=== PATIENT | female | born 1935 | race Caucasian/White ===

== ENCOUNTER 2016-10-17 14:57 | Emergency (ER) | payer MEDICARE, OTHER ==
[2016-10-17 16:17] LABS: ABSOLUTE NEUTROPHIL COUNT 6.2 K/mm3 (1.8-7.7); BASO # 0.1 K/mm3 (0.0-0.2); BASO % 0.8 % (0.2-1.0); EOS # 0.1 (0.0-0.5); EOS % 1.3 % (0.9-2.9); HEMOGLOBIN 11.9 gm/l (12.0-16.0); IMM NEUT% 0.3 % (0-1); LYMPH % 21.8 % (15-45); MEAN CELL VOLUME 100.9 fl (81.0-99.0); MEAN CORPUSCULAR HEMOGLOBIN 34.3 pg (27.0-31.0); MEAN PLATELET VOLUME 9.8 fl (7.4-10.4); MONO # 0.7 (0.0-0.8); MONO % 7.7 % (4-12); NEUT % 68.1 % (43-75); PLATELET COUNT 252 K/mm3 (130-400)
[2016-10-17] MEDS ORDERED: SODIUM CHLORIDE 0.9% 1,000 ML ONE (16:18)
[2016-10-17] MEDS ORDERED: PROMETHAZINE HCL 25 MG/ML VIAL ONE (16:18)
[2016-10-17 16:26] LABS: INR 0.99; PARTIAL THROMBOPLASTIN TIME 21.9 SECONDS (24.5-33.0); PROTHROMBIN TIME 10.4 SECONDS (9.3-11.4)
[2016-10-17 16:33] LABS: ALB/GLOB RATIO 1.2 (>1.0); ALBUMIN 3.4 gm/dL (3.5-5.7); CALCIUM 8.8 mg/dL (8.6-10.3)
== END 2016-10-17 17:24 | disposition home or self-care (01) ==
LOC: ED 14:57
DX: E86.0 Dehydration (principal); R19.7 Diarrhea, unspecified; R11.0 Nausea; R19.5 Other fecal abnormalities; I10 Essential (primary) hypertension
CPT/HCPCS: 85025; 80053; 85730; 85610; 99283 ×2; 96361; 93005; 96374; J2550; J7030

== ENCOUNTER 2016-10-26 11:53 | Emergency (ER) | payer MEDICARE, OTHER ==
[2016-10-26 12:43] LABS: ABSOLUTE NEUTROPHIL COUNT 3.9 K/mm3 (1.8-7.7); BASO # 0.1 K/mm3 (0.0-0.2); BASO % 1.1 % (0.2-1.0); EOS # 0.2 (0.0-0.5); EOS % 3.3 % (0.9-2.9); HEMATOCRIT 37.9 % (37.0-47.0); HEMOGLOBIN 12.5 gm/l (12.0-16.0); IMM NEUT% 0.4 % (0-1); LYMPH % 28.2 % (15-45); MEAN CELL VOLUME 104.7 fl (81.0-99.0); MEAN CORPUSCULAR HEMOGLOBIN 34.5 pg (27.0-31.0); MEAN PLATELET VOLUME 9.7 fl (7.4-10.4); MONO # 0.8 (0.0-0.8); MONO % 11.5 % (4-12); NEUT % 55.5 % (43-75); PLATELET COUNT 253 K/mm3 (130-400); RED CELL DISTRIBUTION WIDTH 14.6 % (11.5-14.5)
[2016-10-26 12:48] LABS: INR 0.96; PROTHROMBIN TIME 10.1 SECONDS (9.3-11.4)
[2016-10-26 12:56] LABS: ALB/GLOB RATIO 1.4 (>1.0); ALBUMIN 3.7 gm/dL (3.5-5.7); CALCIUM 9.1 mg/dL (8.6-10.3)
[2016-10-26] MEDS ORDERED: PANTOPRAZOLE 40 MG TABLET DR PO ONE (14:43)
== END 2016-10-26 16:22 | disposition home or self-care (01) ==
LOC: ED 11:53
DX: K92.1 Melena (principal); I10 Essential (primary) hypertension; I48.91 Unspecified atrial fibrillation
CPT/HCPCS: 85025; 80053; 85610; 86901; 86850 ×3; 99283 ×2; A9270

== ENCOUNTER 2016-10-27 06:55 | Day surgery (SDC) | payer MEDICARE, OTHER ==
[~2016-10-27 06:55] MED LIST: FENTANYL 250 MCG/5 ML AMP IV PRN; LACTATED RINGERS 1,000 ML IV SCH; LIDOCAINE Viscous 2% 15 ML UDCUP PO PRN; MIDAZOLAM HCL 5 MG/5 ML VIAL IV PRN
[2016-10-27] MEDS ORDERED: LACTATED RINGERS 1,000 ML ONE (07:02)
[2016-10-27] MEDS ORDERED: IV START KIT ONE (07:02)
[2016-10-27] MEDS ORDERED: PROPOFOL 20 ML IV ONE (08:19)
[2016-10-27] MEDS ORDERED: FENTANYL 100 MCG/2 ML VIAL ONE (08:19)
[2016-10-27 15:37] LABS: HELICOBACTER PYLORII DETECTION POSITIVE (NEGATIVE)
--- NOTE | 2016-10-29 14:23 | SURGPATH ---
[facility] [address] [place] [id number] Patient Name: NELY MCINTYRE MR#: [id number] : 1935 Gender: F Specimen #: [id number] Collected: 10/27/2016 Received: 10/28/2016 Reported: 10/29/2016 Submitting Phys: DELMA BRYAN Copy To Phys: [facility] TATY [facility]IL[facility] Clinical History / Pre-Operative Diagnosis: EPIGASTRIC PAIN; MELENA; RULE OUT GASTRITIS Specimen Source / Surgical Procedure Performed: ANTRAL BIOPSY Interpretation: STOMACH, ANTRUM, BIOPSY: - CHRONIC ACTIVE HELICOBACTER GASTRITIS Electronically Signed Out Carlos Mccann M.D. Gross Description: The specimen is received in a formalin filled container labeled with the patient's name and "antral biopsy". Two conklin biopsies are 0.3 and 0.4 cm. Totally embedded in one cassette. Liane Mcmahan Microscopic Description: Levels reveal fragments of gastric mucosa with increased chronic and acute inflammation within the lamina propria and focally acute inflammation within the epithelium. Present within the mucus layer are scattered organisms with features consistent with Helicobacter. There is also focal goblet cell metaplasia and reactive epithelial changes. 1: [id number] K29.31 B96.81
--- NOTE | 2016-10-31 12:16 | OP ---
MIGUELINA NELY LOBO [id number] DATE OF SERVICE: 10/31/2016 ADDENDUM: This 81-year-old female patient was in the practice of Dr. Chai Almonte, underwent upper endoscopy on 10/27/2016 for epigastric pain and melena. The upper endoscopy demonstrated gastritis. Antral biopsies confirmed the presence of Helicobacter pylori within the stomach. Biaxin and metronidazole both 500 mg twice daily have been added to her prescription of famotidine. Medical follow up will be by Dr. Chai Almonte. JOB #: [id number] JOSE/nikita Cc: Chai Almonte MD
== END 2016-10-27 09:35 | disposition home or self-care (01) ==
LOC: SDC 06:55
PROVIDERS: ATTEND Internal Medicine Gastroenterology
PROC: 0DB68ZX Excision of Stomach, Via Natural or Artificial Opening Endoscopic, Diagnostic (ICD-10-PCS; principal; 2016-10-27)
DX: K29.00 Acute gastritis without bleeding (principal); B96.81 Helicobacter pylori [H. pylori] as the cause of diseases classified elsewhere; K29.80 Duodenitis without bleeding; Z79.01 Long term (current) use of anticoagulants; I48.91 Unspecified atrial fibrillation; E03.9 Hypothyroidism, unspecified; E78.5 Hyperlipidemia, unspecified; I10 Essential (primary) hypertension; M79.1 Myalgia; F03.90 Unspecified dementia, unspecified severity, without behavioral disturbance, psychotic disturbance, mood disturbance, and anxiety; Z88.6 Allergy status to analgesic agent
CPT/HCPCS: 43239; 87081; J3010; J7120

== ENCOUNTER 2016-11-02 18:31 | Emergency (ER) | payer MEDICARE, OTHER ==
[2016-11-02 19:25] LABS: ABSOLUTE NEUTROPHIL COUNT 4.3 K/mm3 (1.8-7.7); BASO # 0.1 K/mm3 (0.0-0.2); BASO % 0.9 % (0.2-1.0); EOS # 0.1 (0.0-0.5); EOS % 1.6 % (0.9-2.9); HEMATOCRIT 35.5 % (37.0-47.0); HEMOGLOBIN 11.9 gm/l (12.0-16.0); IMM NEUT% 0.3 % (0-1); LYMPH # 1.5 (1.0-4.8); LYMPH % 21.8 % (15-45); MEAN CELL VOLUME 103.2 fl (81.0-99.0); MEAN CORPUSCULAR HEMOGLOBIN 34.6 pg (27.0-31.0); MEAN CORPUSCULAR HGB CONC 33.5 g/dl (33.0-37.0); MEAN PLATELET VOLUME 9.2 fl (7.4-10.4); MONO # 0.9 (0.0-0.8); MONO % 12.7 % (4-12); NEUT % 62.7 % (43-75); PLATELET COUNT 250 K/mm3 (130-400); RED CELL DISTRIBUTION WIDTH 14.2 % (11.5-14.5)
--- NOTE | 2016-11-02 19:50 | CT ---
EXAMINATION: Noncontrast cranial CT. CLINICAL INDICATION: Dizziness. TECHNIQUE: A noncontrast cranial CT scan was obtained. Axial images were acquired from just above the vertex through the skull base. 4 mm stacked axial, coronal, and sagittal reconstructions were reviewed. COMPARISONS: 04/08/2011, 11/09/2008. FINDINGS: The CSF containing spaces are prominent throughout. There is diminished attenuation within the periventricular white matter tracts bilaterally. No acute intercranial hemorrhage, mass or mass effect is identified. No extra-axial fluid collections are detected. The visualized segments of the posterior fossa are unremarkable. The cerebellar pontine angle cisterns are symmetric. The osseous structures are intact. The paranasal sinuses are clear. The visualized portions of the orbits are unremarkable. The mastoid sinuses are normal and symmetric. IMPRESSION: Global diffuse atrophy with microvascular ischemic changes. No acute intracranial abnormalities are identified. The findings were uploaded to the electronic medical record for review at approximately 7:51 PM 11/02/2016
[2016-11-02 19:51] LABS: TROPONIN I < 0.01 ng/ml (0.0-0.06)
[2016-11-02 19:54] LABS: CKMB ISOENZYME 3.3 ng/ml (0.6-6.3)
[2016-11-02 20:10] LABS: ALB/GLOB RATIO 1.3 (>1.0); ALBUMIN 3.5 gm/dL (3.5-5.7); CALCIUM 8.4 mg/dL (8.6-10.3)
[2016-11-02] MEDS ORDERED: SODIUM CHLORIDE 0.9% 1,000 ML ONE (20:13)
[2016-11-02 20:17] LABS: D-DIMER 0.34 mg/L FEU (0.20-0.50); INR 0.99; PARTIAL THROMBOPLASTIN TIME 24.2 SECONDS (24.5-33.0); PROTHROMBIN TIME 10.4 SECONDS (9.3-11.4)
== END 2016-11-02 21:12 | disposition home or self-care (01) ==
LOC: ED 18:31
DX: R42 Dizziness and giddiness (principal); E86.0 Dehydration; F10.129 Alcohol abuse with intoxication, unspecified; Y90.0 Blood alcohol level of less than 20 mg/100 ml; I10 Essential (primary) hypertension; I48.91 Unspecified atrial fibrillation
CPT/HCPCS: 85379; 85025; 82550; 82553; 80053; 80307; 85730; 85610; 84484; 70450; 99284 ×2; 93005; J7030